=== PATIENT | female | born 1940 | race Caucasian/White ===

== ENCOUNTER 2020-07-14 14:42 | Inpatient (IN) | payer OTHER ==
[~2020-07-14] VITALS: Ht 149.9 cm; Wt 68.0 kg
[2020-07-14 19:07] LABS: BASOPHILS # (AUTO) 0.1 X10'3 (0-0.2); HEMOGLOBIN 12.9 g/dl (12.0-16.0); MONOCYTES # (AUTO) 0.4 X10'3 (0-0.9)
[2020-07-14 19:09] LABS: BASOPHILS % (AUTO) 1.3 % (0-1); EOSINOPHILS # (AUTO) 0.2 X10'3 (0-0.9); EOSINOPHILS % (AUTO) 2.7 % (0-6); HEMATOCRIT 38.5 % (35.0-45.0); LYMPHOCYTES # (AUTO) 2.3 X10'3 (1.1-4.8); LYMPHOCYTES % (AUTO) 28.8 % (21-51); MEAN CORPUSCULAR HEMOGLOBIN 29.8 PG (27.0-31.0); MEAN CORPUSCULAR HGB CONC 33.6 g/dL (33.0-36.5); MEAN CORPUSCULAR VOLUME 88.7 FL (78-98); MEAN PLATELET VOLUME 8.6 FL (7.4-10.4); MONOCYTES % (AUTO) 5.1 % (2-12); NEUTROPHILS % (AUTO) 62.1 % (42-75); PLATELET COUNT 275 X10'3 (140-440); RED BLOOD COUNT 4.34 X10'6 (4.20-5.60); RED CELL DISTRIBUTION WIDTH 15.7 % (11.5-14.5); WHITE BLOOD COUNT 8.1 X10'3 (4.5-11.0)
[2020-07-14 19:18] LABS: PARTIAL THROMBOPLASTIN TIME 34 SECONDS (22-32)
[2020-07-14 19:22] LABS: ALANINE AMINOTRANSFERASE 341 U/L (12-78); ALBUMIN 3.3 G/DL (3.4-5.0); ANION GAP 7 (8-16); BILIRUBIN,TOTAL 14.6 MG/DL (0.1-1.0); BLOOD UREA NITROGEN 9 MG/DL (7-18); CHLORIDE 96 MMOL/L (99-107); LIPASE 267 U/L (73-393); SODIUM 131 MMOL/L (135-145); TOTAL CARBON DIOXIDE 28.3 MMOL/L (24-32)
[2020-07-14 19:30] LABS: GLUCOSE 393 MG/DL (70-104); POTASSIUM 3.9 MMOL/L (3.5-5.1)
[2020-07-14 20:02] LABS: CLARITY,URINE CLEAR (Clear); COLOR,URINE YELLOW (Yellow); GLUCOSE, URINE >=1000 mg/dl (Neg); KETONES,URINE TRACE mg/dl (Neg); LEUKOCYTE ESTERASE ,URINE NEGATIVE (Neg); NITRITES, URINE NEGATIVE (Neg); OCCULT BLOOD,URINE TRACE-INTACT (Neg); PROTEIN,URINE 30 mg/dl (Neg); UROBILINOGEN,URINE 0.2 E.U/dL (0.2-1.0)
[2020-07-14] MEDS ORDERED: normal saline 1000ml 1,000 ML IV ONE ×2 (20:05)
[2020-07-14 20:06] LABS: ASPARTATE AMINO TRANSFERASE 228 U/L (10-37)
[2020-07-14 20:10] LABS: UA COLLECTION TYPE CLN CATCH MIDSTREAM
[2020-07-14 20:12] LABS: ALKALINE PHOSPHATASE 1111 IU/L (46-116)
[2020-07-14 20:21] LABS: SQUAMOUS EPITHELIAL CELL,UR FEW /LPF (FEW)
[2020-07-14 20:22] LABS: CAL OXALATE CRYSTALS 1+ /HPF (NEGATIVE)
[2020-07-14 20:23] LABS: BACTERIA,URINE FEW /HPF (Neg); WBC,URINE 0-4 /HPF (0-4)
[2020-07-14] MEDS ORDERED: PREG75CA75 PO (20:30)
[2020-07-14] MEDS ORDERED: METF-436 PO (20:30)
[2020-07-14] MEDS ORDERED: ESCI10TA61 PO (20:30)
[2020-07-14] MEDS ORDERED: HYDR12.55 PO (20:30)
[2020-07-14] MEDS ORDERED: OXYC1TAB17 PO (20:30)
[2020-07-14] MEDS ORDERED: ATOR40TA72 PO (20:30)
[2020-07-14 20:31] LABS: ALBUMIN/GLOBULIN RATIO 0.8 (1.1-1.5); BUN/CREATININE RATIO 12.7 (6.6-38.0); CREATININE 0.71 MG/DL (0.40-0.90); TOTAL PROTEIN 7.7 G/DL (6.4-8.2); eGFR 80 ML/MIN
[2020-07-14] MEDS ORDERED: LIDO700A47 TOP (20:32)
[2020-07-14] MEDS ORDERED: magnesium 2GM in 50ml NS 50 ML IV PRN (20:55)
[2020-07-14] MEDS ORDERED: acetaminophen 325mg tablet PO PRN (20:55)
[2020-07-14] MEDS ORDERED: potassium Cl 20 mEq SR tablet PO PRN (20:55)
[2020-07-14] MEDS ORDERED: glucagon, human recombinant 1mg kit SUBCUT PRN (20:55)
[2020-07-14] MEDS ORDERED: bisacodyl 10mg suppository rectal RC PRN (20:55)
[2020-07-14] MEDS ORDERED: magnesium 4gm in 100ml NS 100 ML IV PRN (20:55)
[2020-07-14] MEDS ORDERED: ondansetron/PF 4mg/2ml inj IV PRN (20:55)
[2020-07-14] MEDS ORDERED: dextrose ORAL solution 15 GM/59 ML bottle PO PRN ×2 (20:55)
[2020-07-14] MEDS ORDERED: MESSAGE TO PHARMACY PO ONE (20:55)
[2020-07-14] MEDS ORDERED: potassium CL 10mEq/100ml bag 100 ML IV PRN ×2 (20:55)
[2020-07-14] MEDS ORDERED: dextrose 50%-water 50ml dispensing syringe IV PRN ×2 (20:55)
[2020-07-14] MEDS ORDERED: iohexol 300mg/ml 100ml inj. ONE (21:00)
[2020-07-14] MEDS: insulin glargine (Lantus) pen - multi-dose SQ SCH (21:00)
--- NOTE | 2020-07-14 21:00 | NUR ---
gi lab called she needs to be npo after midnight
[2020-07-14 21:19] LABS: HEMOGLOBIN A1C 9.8 % (4.5-6.2)
[2020-07-14] MEDS ORDERED: insulin regular, human 10 units/0.1 ml syringe SQ ONE (22:55)
[2020-07-14] MEDS ORDERED: pregabalin 75mg capsule PO ONE (22:55)
[2020-07-14] MEDS ORDERED: oxyCODONE/APAP 10/325mg tablet PO ONE (22:55)
[2020-07-14] MEDS: normal saline 1000ml 1,000 ML IV SCH (23:05)
--- NOTE | 2020-07-14 23:30 | NUR ---
pt s requesting to speak to hospitalist about getting her insulin iv instead of sq due to easy bruising. Pt asked this after i gave her a sq injection and hse said "I like getting it in my right side of my abdomen because i cant feel it". I explained to her that this is not our protocol here at the hospital and she said "you need to get the doctor so i can talk to him". i eplained to her that he is very busy with the whole hospital and i can ask him. she procedded to laugh in my face telling me that was rediculious. after speaking with hospitalist he confirmed what i said about only giving insulin iv for dka and emergent cases.
--- NOTE | 2020-07-14 23:42 | NUR ---
DR BLOUNT CAME IN AN TALKED TO PT ABOUT OUR PROTOCOLS OF GIVING INSULIN SQ IN THE HOSPITAL AND NOT IV. PT CONTINUED TO QUESTION OUR PROTOCOLS AND THAT THEY NEEDED TO BE CHANGED.
[2020-07-15] VITALS (20 sets, daily range): BP systolic 119–181; BP diastolic 50–96
--- NOTE | 2020-07-15 01:10 | NUR ---
Pt ambulated to the bathroom on her own with her walker with no difficulties.
[2020-07-15] MEDS ORDERED: hydrALAZINE 20mg/ml inj. IV PRN (01:40)
--- NOTE | 2020-07-15 04:10 | NUR ---
Patient in room ED 13. I have received report from dominic Olivier and had the opportunity to ask questions and assume patient care.
--- NOTE | 2020-07-15 04:26 | NUR ---
PT ARRIVED ON THE FLOOR, IN STABLE CONDITION, HAS PS 6/10 ON ABDOMINAL AREA.
[2020-07-15 06:23] LABS: HEMOGLOBIN 11.9 g/dl (12.0-16.0); MEAN CORPUSCULAR HGB CONC 33.5 g/dL (33.0-36.5)
[2020-07-15 06:26] LABS: HEMATOCRIT 35.6 % (35.0-45.0); MEAN CORPUSCULAR HEMOGLOBIN 29.7 PG (27.0-31.0); MEAN CORPUSCULAR VOLUME 88.6 FL (78-98); MEAN PLATELET VOLUME 8.6 FL (7.4-10.4); PLATELET COUNT 277 X10'3 (140-440); RED BLOOD COUNT 4.02 X10'6 (4.20-5.60); RED CELL DISTRIBUTION WIDTH 15.6 % (11.5-14.5); WHITE BLOOD COUNT 7.3 X10'3 (4.5-11.0)
[2020-07-15 06:42] LABS: ALANINE AMINOTRANSFERASE 323 U/L (12-78); ALBUMIN 3.1 G/DL (3.4-5.0); ANION GAP 7 (8-16); ASPARTATE AMINO TRANSFERASE 227 U/L (10-37); BILIRUBIN,TOTAL 13.6 MG/DL (0.1-1.0); BLOOD UREA NITROGEN 6 MG/DL (7-18); BUN/CREATININE RATIO 9.2 (6.6-38.0); CALCIUM 9.6 MG/DL (8.5-10.1); CHLORIDE 100 MMOL/L (99-107); CREATININE 0.65 MG/DL (0.40-0.90); GLUCOSE 246 MG/DL (70-104); SODIUM 136 MMOL/L (135-145); TOTAL CARBON DIOXIDE 28.6 MMOL/L (24-32); eGFR 88 ML/MIN
--- NOTE | 2020-07-15 06:46 | NUR ---
Problems reprioritized. Patient report given, questions answered & plan of care reviewed with SCOTT DAWSON.
--- NOTE | 2020-07-15 06:49 | NUR ---
Patient in room [facility]. I have received report from Tara Carrion RN and had the opportunity to ask questions and assume patient care.
[2020-07-15 06:58] LABS: TOTAL CELLS COUNTED 100
[2020-07-15 06:59] LABS: ANISOCYTOSIS FEW; PLATELET ESTIMATE NORMAL
[2020-07-15 07:22] LABS: ALBUMIN/GLOBULIN RATIO 0.8 (1.1-1.5); POTASSIUM 3.4 MMOL/L (3.5-5.1); TOTAL PROTEIN 7.1 G/DL (6.4-8.2)
[2020-07-15 07:50] LABS: ALKALINE PHOSPHATASE 1067 IU/L (46-116)
[2020-07-15] MEDS: K and/or MAG REPLACEMENT MC SCH ×2 (08:00→20:00)
[2020-07-15] MEDS: pregabalin 75mg capsule PO SCH ×4 (08:41→21:43)
[2020-07-15] MEDS: potassium Cl 20 mEq SR tablet PO PRN ×3 (08:42→20:30)
[2020-07-15] MEDS: oxyCODONE/APAP 10/325mg tablet PO PRN ×3 (08:42→21:49)
[2020-07-15] MEDS: insulin Lispro (HumaLOG) vial - multi-dose SQ SCH ×2 (08:52→19:00)
--- NOTE | 2020-07-15 10:30 | NUR ---
Pt transported to GI lab via wheelchair by Kayla CHAVEZ. All belongings left in room 345B
[2020-07-15] MEDS ORDERED: fentaNYL/PF 50MCG/1 ML 2ML syringe ONE (12:22)
[2020-07-15] MEDS ORDERED: MIDAZolam 5mg/5ml vial ONE (12:22)
[2020-07-15] MEDS ORDERED: LIDOcaine Viscous 15ml cup ONE (12:23)
[2020-07-15] MEDS ORDERED: glucagon, human recombinant 1mg kit ONE ×2 (12:23)
[2020-07-15] MEDS ORDERED: iohexol 300 MG/1 ML 50ml polymer ONE (12:23)
--- NOTE | 2020-07-15 12:30 | NUR ---
Pt off floor at ERCP for 1200 accucheck. Will check at 1700 per policy and continue to monitor.
[2020-07-15] MEDS ORDERED: levoFLOXACIN-Levaquin 500mg/D5 100 ML IV ONE (12:51)
--- NOTE | 2020-07-15 14:30 | NUR ---
pt returned to surgical floor from GI lab via wheelchair. Pt settled in bed, call light within reach, post op VS started.
--- NOTE | 2020-07-15 14:40 | NUR ---
DM consult: Pt with A1c 9.8%. Attempted visit with pt at bedside however pt out of room for ERCP. Will attempt education at another time. Addendum: 07/15/20 at [address] Amended: Links added.
[2020-07-15] MEDS: normal saline 1000ml 1,000 ML IV SCH ×2 (15:06→16:55)
--- NOTE | 2020-07-15 18:25 | NUR ---
Problems reprioritized. Patient report given, questions answered & plan of care reviewed with Tara Carrion RN.
--- NOTE | 2020-07-15 18:28 | NUR ---
Patient in room [facility]. I have received report from SCOTT Peterson and had the opportunity to ask questions and assume patient care. Addendum: 07/15/20 at 1828 by Araceli Parker RN Amended: Links added.
[2020-07-15] MEDS ORDERED: enoxaparin 40mg/0.4ml syringe SQ SCH (20:00)
[2020-07-15] MEDS: morphine 2 MG/ML inj. syringe IV PRN (20:23)
[2020-07-15] MEDS: insulin glargine (Lantus) pen - multi-dose SQ SCH (21:45)
[2020-07-16] VITALS: BP 146/67
[2020-07-16] MEDS: normal saline 1000ml 1,000 ML IV SCH ×3 (01:12→19:40)
[2020-07-16] MEDS: morphine 2 MG/ML inj. syringe IV PRN ×3 (01:30→12:36)
[2020-07-16] MEDS ORDERED: HYDROmorphone inj. 0.5 MG/0.5 ML DISP.SYRIN IM ONE (03:15)
[2020-07-16] MEDS ORDERED: HYDROmorphone inj. 0.5 MG/0.5 ML DISP.SYRIN IV ONE (03:25)
[2020-07-16] MEDS: pregabalin 75mg capsule PO SCH ×4 (04:03→21:59)
[2020-07-16] MEDS: oxyCODONE/APAP 10/325mg tablet PO PRN ×4 (04:04→22:00)
--- NOTE | 2020-07-16 05:45 | NUR ---
patient was c/o pain in between her pain meds that was given, received order x1 dilaudid with Dr. luke and given. patient still c/o pain after getting morphine and percocet as well. c/o jamel feet numbness/ting,ing Encouraged patient to ambulate and stated thats not going to help
[2020-07-16 06:19] LABS: ALANINE AMINOTRANSFERASE 242 U/L (12-78); ALBUMIN 2.7 G/DL (3.4-5.0); ALKALINE PHOSPHATASE 908 IU/L (46-116); ANION GAP 10 (8-16); ASPARTATE AMINO TRANSFERASE 137 U/L (10-37); BILIRUBIN,TOTAL 5.5 MG/DL (0.1-1.0); BLOOD UREA NITROGEN 6 MG/DL (7-18); BUN/CREATININE RATIO 8.5 (6.6-38.0); CALCIUM 9.1 MG/DL (8.5-10.1); CHLORIDE 101 MMOL/L (99-107); CREATININE 0.71 MG/DL (0.40-0.90); GLUCOSE 169 MG/DL (70-104); MAGNESIUM 1.6 MG/DL (1.5-2.4); POTASSIUM 3.7 MMOL/L (3.5-5.1); SODIUM 134 MMOL/L (135-145); TOTAL CARBON DIOXIDE 23.4 MMOL/L (24-32); eGFR 80 ML/MIN
[2020-07-16 06:22] LABS: ALBUMIN/GLOBULIN RATIO 0.7 (1.1-1.5); TOTAL PROTEIN 6.7 G/DL (6.4-8.2)
[2020-07-16 06:31] LABS: BASOPHILS # (AUTO) 0.1 X10'3 (0-0.2); EOSINOPHILS # (AUTO) 0.3 X10'3 (0-0.9); HEMOGLOBIN 11.6 g/dl (12.0-16.0)
--- NOTE | 2020-07-16 06:32 | NUR ---
Problems reprioritized. Patient report given, questions answered & plan of care reviewed with SCOTT West.
[2020-07-16 06:34] LABS: BASOPHILS % (AUTO) 0.8 % (0-1); EOSINOPHILS % (AUTO) 3.9 % (0-6); HEMATOCRIT 34.7 % (35.0-45.0); LYMPHOCYTES # (AUTO) 1.5 X10'3 (1.1-4.8); MEAN CORPUSCULAR HEMOGLOBIN 29.7 PG (27.0-31.0); MEAN CORPUSCULAR HGB CONC 33.5 g/dL (33.0-36.5); MEAN CORPUSCULAR VOLUME 88.7 FL (78-98); MEAN PLATELET VOLUME 9.1 FL (7.4-10.4); MONOCYTES # (AUTO) 0.5 X10'3 (0-0.9); MONOCYTES % (AUTO) 6.9 % (2-12); NEUTROPHILS # (AUTO) 4.7 X10'3 (1.8-7.7); NEUTROPHILS % (AUTO) 67.4 % (42-75); PLATELET COUNT 246 X10'3 (140-440); RED BLOOD COUNT 3.91 X10'6 (4.20-5.60); RED CELL DISTRIBUTION WIDTH 15.7 % (11.5-14.5); WHITE BLOOD COUNT 6.9 X10'3 (4.5-11.0)
[2020-07-16 07:25] LABS: ANISOCYTOSIS 1+; PLATELET ESTIMATE NORMAL; STOMATOCYTES 1+
[2020-07-16 07:59] VITALS: BP 122/61
[2020-07-16] MEDS: K and/or MAG REPLACEMENT MC SCH ×2 (08:00→19:31)
[2020-07-16] MEDS: atorvastatin 20mg tablet PO SCH (09:16)
[2020-07-16] MEDS: HYDROchlorothiazide 12.5mg capsule PO SCH (09:17)
[2020-07-16] MEDS: ESCITALOPRAM OXALATE 5 MG TABLET PO SCH (09:17)
[2020-07-16] MEDS: insulin Lispro (HumaLOG) vial - multi-dose SQ SCH ×2 (09:32→19:39)
--- NOTE | 2020-07-16 10:40 | NUR ---
Pt expressed multiple complaints regarding her medication administration times and the process of receiving the MD's informed consent in the GI Lab yesterday. She asked to speak to the avionics shop supervisor, and Arely Alexis, arrived to room approx 1000 to speak to pt. Pt's IV dressing had small amount of sero-sang drainage at site. No redness, or swelling at the site and pt denies pain. IV fluid infusing w/o difficulty. SCOTT West was notified of IV.
--- NOTE | 2020-07-16 10:45 | NUR ---
Assessed IV site, IV patent and dressing was changed. IV infusing with no complications.
[2020-07-16] MEDS ORDERED: LIDOcaine 5% patch TP ONE (11:49)
[2020-07-16] MEDS ORDERED: diphenhydrAMINE 25mg capsule PO PRN (11:50)
[2020-07-16 11:54] VITALS: BP 132/75
--- NOTE | 2020-07-16 13:06 | NUR ---
Patient in room [facility]. I have received report from Tara CHAVEZ and had the opportunity to ask questions and assume patient care. Addendum: 07/16/20 at 1751 by Jenna Hernandez RN Wrong time for above note, correct time that report was received was 0600.
--- NOTE | 2020-07-16 16:00 | NUR ---
Dr. Martell called to state pt is to follow up with him in the office for an elective GB surgery consultation. states its ok to DC'g the pt home from his perspective. SCOTT West aware, and Dr Crawford notified via [facility]
--- NOTE | 2020-07-16 16:10 | NUR ---
Informed patient that Dr. Crawford stated that if LFT labs are improved tomorrow then patient can discharge and followup outpatient with Dr. Simpson to schedule gallbladder removal. Patient agrees with plan of care.
--- NOTE | 2020-07-16 16:58 | NUR ---
Spoke with granddaughter Gee over the phone for update, patient gave permission to give update.
[2020-07-16 18:00] VITALS: BP 145/52
--- NOTE | 2020-07-16 18:34 | NUR ---
Problems reprioritized. Patient report given, questions answered & plan of care reviewed with Sangita CHAVEZ.
--- NOTE | 2020-07-16 19:58 | NUR ---
I have received report from Jenna CHAVEZ and had the opportunity to ask questions and assume patient care.
[2020-07-16] MEDS: insulin glargine (Lantus) pen - multi-dose SQ SCH (21:18)
[2020-07-17] VITALS: BP 109/53
[2020-07-17] MEDS: normal saline 1000ml 1,000 ML IV SCH (04:05)
[2020-07-17] MEDS: oxyCODONE/APAP 10/325mg tablet PO PRN ×2 (04:05→10:08)
[2020-07-17] MEDS: pregabalin 75mg capsule PO SCH ×2 (04:06→10:07)
--- NOTE | 2020-07-17 06:11 | NUR ---
Problems reprioritized. Patient report given, questions answered & plan of care reviewed with Margo CHAVEZ.
--- NOTE | 2020-07-17 06:18 | NUR ---
Patient in room [facility]. I have received report from SCOTT CORTES and had the opportunity to ask questions and assume patient care.
[2020-07-17 06:32] LABS: BASOPHILS # (AUTO) 0.1 X10'3 (0-0.2); BASOPHILS % (AUTO) 1.3 % (0-1); EOSINOPHILS # (AUTO) 0.3 X10'3 (0-0.9); EOSINOPHILS % (AUTO) 3.6 % (0-6); HEMATOCRIT 31.2 % (35.0-45.0); HEMOGLOBIN 10.4 g/dl (12.0-16.0); LYMPHOCYTES # (AUTO) 2.1 X10'3 (1.1-4.8); LYMPHOCYTES % (AUTO) 26.9 % (21-51); MEAN CORPUSCULAR HEMOGLOBIN 30.2 PG (27.0-31.0); MEAN CORPUSCULAR HGB CONC 33.3 g/dL (33.0-36.5); MEAN CORPUSCULAR VOLUME 90.7 FL (78-98); MEAN PLATELET VOLUME 9.2 FL (7.4-10.4); MONOCYTES # (AUTO) 0.5 X10'3 (0-0.9); MONOCYTES % (AUTO) 6.8 % (2-12); NEUTROPHILS # (AUTO) 4.8 X10'3 (1.8-7.7); NEUTROPHILS % (AUTO) 61.4 % (42-75); PLATELET COUNT 236 X10'3 (140-440); RED BLOOD COUNT 3.44 X10'6 (4.20-5.60); RED CELL DISTRIBUTION WIDTH 15.8 % (11.5-14.5); WHITE BLOOD COUNT 7.9 X10'3 (4.5-11.0)
[2020-07-17 06:42] LABS: ALANINE AMINOTRANSFERASE 198 U/L (12-78); ALBUMIN 2.4 G/DL (3.4-5.0); ALKALINE PHOSPHATASE 735 IU/L (46-116); ANION GAP 9 (8-16); ASPARTATE AMINO TRANSFERASE 114 U/L (10-37); BILIRUBIN,DIRECT 2.7 MG/DL (0-0.3); BILIRUBIN,TOTAL 3.7 MG/DL (0.1-1.0); BLOOD UREA NITROGEN 7 MG/DL (7-18); BUN/CREATININE RATIO 10.6 (6.6-38.0); CALCIUM 8.9 MG/DL (8.5-10.1); CHLORIDE 104 MMOL/L (99-107); CREATININE 0.66 MG/DL (0.40-0.90); GLUCOSE 164 MG/DL (70-104); MAGNESIUM 1.8 MG/DL (1.5-2.4); POTASSIUM 3.6 MMOL/L (3.5-5.1); SODIUM 138 MMOL/L (135-145); TOTAL CARBON DIOXIDE 24.7 MMOL/L (24-32); eGFR 87 ML/MIN
[2020-07-17 06:46] LABS: ALBUMIN/GLOBULIN RATIO 0.6 (1.1-1.5); TOTAL PROTEIN 6.1 G/DL (6.4-8.2)
[2020-07-17 07:00] VITALS: BP 103/44
[2020-07-17] MEDS ORDERED: LIDOcaine 5% patch TP SCH (08:00)
[2020-07-17] MEDS: K and/or MAG REPLACEMENT MC SCH (08:00)
[2020-07-17] MEDS: HYDROchlorothiazide 12.5mg capsule PO SCH (08:04)
[2020-07-17] MEDS: atorvastatin 20mg tablet PO SCH (08:04)
[2020-07-17] MEDS: ESCITALOPRAM OXALATE 5 MG TABLET PO SCH (08:04)
[2020-07-17] MEDS: insulin Lispro (HumaLOG) vial - multi-dose SQ SCH (09:16)
[2020-07-17 11:00] VITALS: BP 133/78
[2020-07-17] MEDS ORDERED: PANT-47 PO (13:11)
--- NOTE | 2020-07-17 15:35 | NUR ---
PATIENT STABLE AND APPROPRIATE FOR DISCHARGE, IV TAKEN OUT, NEW MEDS SENT TO PREFERRED PHARMACY, EDUCATION GIVEN, SENT A SIGNIFICANT AMOUNT OF TIME GOING OVER DISCHARGE PAPERWORK, EDUCATION AND PATIENT CARE SUMMARY, ANSWERED QUESTIONS AND EXPLAINED LABS AND THEIR VALUES AND WHAT THEY MEAN. CLARIFIED INFORMATION ON PATIENT CARE SUMMARY, EDUCATED ON NEW MEDS AND IMPENDING SURGICAL PROCEDURE AT DR'S REQUEST. ALL BELONGS SENT WITH PATIENT, PATIENT WALKED TO LOBBY TO AN AWAITING CAR WHERE FAMILY MEMBERS WILL TAKE PATIENT HOME.
== END 2020-07-17 15:35 | disposition home or self-care (01) | DRG 445 ==
LOC: ER 14:43 → ED HOLD 20:52 → SUR 3N 07-15 04:15
PROVIDERS: ADMIT Family Medicine; ATTEND Internal Medicine
PROC: 0FD98ZX Extraction of Common Bile Duct, Via Natural or Artificial Opening Endoscopic, Diagnostic (ICD-10-PCS; principal; 2020-07-15)
PROC: 0F798DZ Dilation of Common Bile Duct with Intraluminal Device, Via Natural or Artificial Opening Endoscopic (ICD-10-PCS; 2020-07-15)
PROC: BF131ZZ Fluoroscopy of Gallbladder and Bile Ducts using Low Osmolar Contrast (ICD-10-PCS; 2020-07-15)
DX: K80.70 Calculus of gallbladder and bile duct without cholecystitis without obstruction (principal); E87.1 Hypo-osmolality and hyponatremia; F32.9 Major depressive disorder, single episode, unspecified; G62.9 Polyneuropathy, unspecified; G89.29 Other chronic pain; I10 Essential (primary) hypertension; K74.60 Unspecified cirrhosis of liver; K82.8 Other specified diseases of gallbladder; Z66 Do not resuscitate; Z79.84 Long term (current) use of oral hypoglycemic drugs; Z79.899 Other long term (current) drug therapy; Z80.0 Family history of malignant neoplasm of digestive organs; Z83.3 Family history of diabetes mellitus; Z85.820 Personal history of malignant melanoma of skin
CPT/HCPCS: 36415; 43261; 43262; 43274; 71045; 74177; 76700; 80053; 81001; 82140; 82248; 82378; 82948; 83036; 83605; 83690; 83735; 84145; 85007; 85008; 85025; 85610; 85730; 86304; 87040; 87081; 93005; 96374; 97116; 97161; 97530; 99152; 99153; 99285; A4620; C1769; G0378; J0360; J1170; J1610; J1650; J1815; J1956; J2250; J2270; J3010; J7030; J7040; Q9967